=== PATIENT | male | born 1975 | race Hispanic/Latino ===

== ENCOUNTER → 2018-01-24 | Outpatient (CLI) | payer BC ==
--- NOTE | 2018-01-24 18:35 | Diagnostic Imaging Report ---
History: Low back pain Comparison studies: None Technique: Sagittal, coronal and axial T2 , sagittal T1 and IR, axial spin density oblique. Intravenous contrast: None Findings: Number of lumbar vertebral bodies:5 Alignment: Straightening of the usual lordosis is probably positional.No scoliosis. Soft tissues: Focal T2 hyperintense inflammatory changes in the L3-4 and L4-5 interspinous soft tissues Paraspinal muscles: No signal abnormalities. No atrophy. Lower thoracic cord:Normal in signal and morphology. The tip of the conus is at mid-L1. Cauda equina: No masses. No arachnoiditis. Vertebrae: Normal in height and signal intensity. No compression fractures, infection or neoplasm. Degenerative changes: L1-L2: Symmetric disc bulge. Otherwise, no abnormalities. L2-L3: Early degenerated disc. Otherwise, no abnormalities. L3-L4: Early degenerated disc. Otherwise, no abnormalities. L4-L5: Mildly degenerated disc , with Schmorl's nodes along the posterior endplates on the left, are associated with focal Modic type 1 inflammatory changes along the endplates. Mild right foraminal stenosis due to an asymmetric disc bulge. Patent spinal canal and left foramen. No herniation. L5-S1: Mildly degenerated disc, associated with a small node along the superior endplate of S1 at midline, is associated with focal moderate that one inflammatory changes along the endplates. Mild right foraminal stenosis is due to an asymmetric disc bulge. Patent spinal canal and left foramen. No disc herniation. Partially visualized sacrum: No signal abnormalities. IMPRESSION: 1. Early degenerated discs at L2-3 and L3-4. 2. Mildly degenerated discs at L4-5 and L5-S1. Schmorl's nodes and Modic type I inflammatory changes along the endplates are seen at both levels. 3. Mild degenerative foraminal stenosis on the right at L4-5 and L5-S1 due to asymmetric disc bulges. 4. Patent spinal canal. 5. No disc herniations. Signed by: Dr. Lalit Jordan M.D. on 01/24/2018 6:31 PM
== END ==
LOC: MRI 08:36
PROVIDERS: ATTEND Anesthesiology Pain Medicine
DX: M54.5 Low back pain (principal); G89.4 Chronic pain syndrome; R20.2 Paresthesia of skin
CPT/HCPCS: 72148; 93922; 93925